=== PATIENT | male | born 1990 | race Caucasian/White ===

== ENCOUNTER 2018-08-07 15:24 | Emergency (ER) | payer MEDICAID, MEDICARE ==
[2018-08-07] MEDS ORDERED: OXYCODONE-ACETAMINOPHEN 5-325 MG TABLET PO ONE (16:10)
[2018-08-07] MEDS ORDERED: NAPROXEN 250 MG TABLET PO ONE (16:16)
--- NOTE | 2018-08-07 16:16 | ER Document Report ---
ED Medical Screen (RME) - General Chief Complaint: Foot Pain Stated Complaint: FOOT PAIN Time Seen by Provider: 08/07/18 16:06 Notes: Patient is a 28-year-old male with cerebral palsy that presents to the emergency department for chief complaint of left foot pain. Patient reports injuring his left foot 3 weeks ago, is not sure how he did it, but has been having pain to the point where he cannot walk on it so he came to the ED eventually today after putting it off.. ROS: Other than noted above, the 12 point review of systems was reviewed with the patient and were negative, all pertinent findings are included in the HPI. PHYSICAL EXAMINATION: Vital signs reviewed. GENERAL: Patient appears uncomfortable HEAD: Atraumatic, normocephalic. EYES: Pupils equal round extraocular movements intact, conjunctiva are normal. ENT: Nares patent NECK: Normal range of motion CV: Heart regular rate and rhythm LUNGS: No respiratory distress Musculoskeletal: Left great toe is tender at the MCP joint, mild erythema and swelling noted NEUROLOGICAL: Normal speech PSYCH: Normal mood, normal affect. MDM: Patient seen and examined for rapid initial assessment. Vital signs reviewed. A comprehensive ED assessment and evaluation of the patient, analysis of test results and completion of the medical decision making process will be conducted by additional ED providers. *Note is created using voice recognition software and may contain spelling, syntax or grammatical errors. TRAVEL OUTSIDE OF THE [place] IN LAST 30 DAYS: No - Related Data Allergies/Adverse Reactions: No Known Allergies Allergy (Verified 08/07/18 15:26) Past Medical History - Social History Chew tobacco use (# tins/day): No Frequency of alcohol use: 2-40's old welsh daily Drug Abuse: None Renal/ Medical History: Denies: Hx Peritoneal Dialysis Past Surgical History: Reports: Hx Orthopedic Surgery - multiple orthopedic procedures to [facility] - Immunizations Hx Diphtheria, Pertussis, Tetanus Vaccination: Yes
--- NOTE | 2018-08-07 17:07 | RADIOLOGY REPORT (SQ) ---
EXAM DESCRIPTION: FOOT LEFT COMPLETE COMPLETED DATE/TIME: 08/07/2018 4:48 pm REASON FOR STUDY: left great toe and foot pain COMPARISON: None. EXAM PARAMETERS: NUMBER OF VIEWS: Three views. TECHNIQUE: AP, lateral and oblique radiographic images acquired of the left foot. LIMITATIONS: None. FINDINGS: MINERALIZATION: Normal. BONES: No acute fracture or dislocation. Prior talocalcaneal fusion, bone screw appears stable. . JOINTS: No effusion. SOFT TISSUES: Mild soft tissue swelling. 8 mm length by 2 mm diameter radiopaque foreign body in the plantar -medial soft tissues near the 1st metatarsophalangeal joint level. . OTHER: No other significant finding. IMPRESSION: 8 mm length by 2 mm diameter radiopaque foreign body in the plantar -medial soft tissues near the 1st metatarsophalangeal joint level. No fracture identified. TECHNICAL DOCUMENTATION: JOB ID: [id number] [place]-72 2010 [facility]- All Rights Reserved Reading location - IP/workstation name: [email or web address]
--- NOTE | 2018-08-07 18:03 | ER Document Report ---
HPI - HPI Patient complains to provider of: Left foot pain Time Seen by Provider: 08/07/18 16:06 Onset: Other - 3 weeks Onset/Duration: Worse Pain Level: 5 Context: Patient complains of left foot pain about the first metatarsal for the past 3 weeks. Patient states that he does not recall any injury but has gradually had worsening pain. Patient does have a history of cerebral palsy and is supposed to use a cane to assist with ambulation but he does not use this. Patient denies any history of high blood pressure but states that he is very anxious when in hospitals and has a lot of foot pain and suspects that this is causing his blood pressure to be elevated. Associated Symptoms: Other - Left foot pain. denies: Chest pain, Nonproductive cough, Headache Exacerbated by: Standing, Movement, Walking Relieved by: Denies Similar symptoms previously: No Recently seen / treated by doctor: No - ROS ROS below otherwise negative: Yes Systems Reviewed and Negative: Yes All other systems reviewed and negative - CONSTITUTIONAL Constitutional: DENIES: Fever - NEURO Neurology: DENIES: Headache, Weakness - CARDIOVASCULAR Cardiovascular: DENIES: Chest pain - RESPIRATORY Respiratory: DENIES: Trouble Breathing, Coughing - GASTROINTESTINAL Gastrointestinal: DENIES: Abdominal Pain - REPRODUCTIVE Reproductive: DENIES: : - MUSCULOSKELETAL Musculoskeletal: REPORTS: Extremity pain, Swelling - DERM Skin Color: Normal Skin Problems: None Past Medical History - General Information source: Patient - Social History Smoking Status: Current Every Day Smoker Chew tobacco use (# tins/day): No Smoking Education Provided: Yes Frequency of alcohol use: 2-40's old [place] daily Drug Abuse: None Occupation: None Lives with: Family Family History: Reviewed & Not Pertinent Patient has suicidal ideation: No Patient has homicidal ideation: No - Medical History Medical History: Other - Cerebral palsy Renal/ Medical History: Denies: Hx Peritoneal Dialysis Past Surgical History: Reports: Hx Orthopedic Surgery - multiple orthopedic procedures to [facility] - Immunizations Hx Diphtheria, Pertussis, Tetanus Vaccination: Yes Vertical Provider Document - CONSTITUTIONAL Agree With Documented VS: Yes Exam Limitations: No Limitations General Appearance: WD/WN, No Apparent Distress - INFECTION CONTROL TRAVEL OUTSIDE OF THE [place] IN LAST 30 DAYS: No - HEENT HEENT: Atraumatic, Normocephalic - NECK Neck: Normal Inspection, Supple - RESPIRATORY Respiratory: Breath Sounds Normal, No Respiratory Distress - CARDIOVASCULAR Cardiovascular: Regular Rate, Regular Rhythm. negative: Tachycardia - GI/ABDOMEN Gastrointestinal: Abdomen Soft - MUSCULOSKELETAL/EXTREMETIES Musculoskeletal/Extremeties: MAEW, Tender - Tenderness to the plantar surface of his left foot below the first distal metatarsal, Edema - NEURO Level of Consciousness: Awake, Alert, Appropriate Motor/Sensory: No Motor Deficit - DERM Integumentary: Warm, Dry, No Rash Course - Re-evaluation Re-evalutation: 08/07/18 17:[address] Fry regarding patient presentation and management. Patient has retained glass to the left foot that has been there for the past month. Dr. Fry recommends outpatient follow-up with podiatry. Does not recommend any antibiotics at this time as the foot does not appear to be infected. Patient states that he did step on glass about 1 month ago but he thought that he had removed all of the glass from his foot. 08/07/18 18:06 Patient advised of retained foreign body need to see podiatry to have foreign object removed. Patient states that he has difficulty ambulating because of the pain. Patient states that he is supposed to use a cane but does not use a cane. Patient states he is unable to use crutches due to his cerebral palsy. Offered patient wheelchair prescription, patient declines at this time. Discussed worsening symptoms of patient to return immediately for. Patient did have elevated blood pressure reading here today. Patient states that he is very anxious and he is having a lot of pain and suspects that this may be attributed to his elevated blood pressure reading at this time. Patient with asymptomatic hypertension. Patient without any headache chest pain back pain, or urinary symptoms. Patient advised that he will need to have his blood pressure rechecked and that if it continues to be elevated he may need to be started on blood pressure medications. 08/08/18 00:21 - Diagnostic Test Radiology reviewed: Image reviewed, Reports reviewed Discharge - Discharge Clinical Impression: Elevated blood pressure reading, Anxiety, Foreign body in subcutaneous tissue, Left foot pain, Tinea versicolor Condition: Stable Disposition: HOME, SELF-CARE Instructions: High Blood Pressure ([facility]), Retained Subcutaneous Foreign Object ([facility]) Additional Instructions: Return immediately for any new or worsening symptoms Followup with your primary care provider, call tomorrow to make a followup appointment You need to see her primary doctor to have your blood pressure reevaluated. If your blood pressure continues to remain elevated you will need to be started on antihypertensive medication. You can use [id number] foam padding to help cushion around the area of tenderness to assist with ambulating. Follow-up with a sailing officer for removal of foreign body to your foot. Do not take pain medication if you are drinking alcohol to avoid any adverse interactions. Prescriptions: Naproxen [Naprosyn 250 Nmg Tablet] 1 tab PO BID #14 tablet Oxycodone HCl/Acetaminophen [Percocet 5-325 mg Tablet] 1 tab PO ASDIR PRN #10 tablet PRN Reason: Selenium Sulfide 1 applic TP DAILY #120 ml Forms: Smoking Cessation Education Referrals: AAYUSH OSMAN DPM [ACTIVE STAFF] - Follow up as needed LUIS EDUARDO LYLE DPM [ACTIVE STAFF] - 08/09/18
[2018-08-07 18:08] VITALS: BP 205/110
== END 2018-08-07 18:30 | disposition home or self-care (01) ==
LOC: ER 15:24
DX: M79.5 Residual foreign body in soft tissue (principal); B36.0 Pityriasis versicolor; M79.672 Pain in left foot; F41.9 Anxiety disorder, unspecified; R03.0 Elevated blood-pressure reading, without diagnosis of hypertension; G80.9 Cerebral palsy, unspecified; F17.200 Nicotine dependence, unspecified, uncomplicated; Z91.19 Patient's noncompliance with other medical treatment and regimen
CPT/HCPCS: 99283; 73630; A9270 ×2